=== PATIENT | male | born 1995 | race Caucasian/White ===

== ENCOUNTER 2017-07-01 11:33 | Day surgery (SDC) | payer OTHER ==
[~2017-07-01 11:33] MED LIST: Buffered Lidocaine 0.9% SYRIN* 5 ML/SYR SYRINGE INTRADERM ONE; Dexamethasone IV* 4 MG/ML 1 ML (4 MG) ONE; Famotidine TAB* 20 MG PO ONE; Lidocaine 2% PF * 5 ML VIAL ONE; Metoclopramide TAB* 10 MG PO ONE; Midazolam* 1 MG/ML 5 ML VIAL (5 MG) ONE; Ondansetron INJ* 2 MG/ML VIAL ONE; Propofol* 10 MG/ML 20 ML BTL IV PUSH ONE; fentaNYL* 50 MCG/ML 2 ML VIAL (100 MCG VIAL) ONE
[2017-07-01] MEDS ORDERED: Metoclopramide TAB* 10 MG ONE (11:42)
[2017-07-01] MEDS ORDERED: fentaNYL* 50 MCG/ML 2 ML VIAL (100 MCG VIAL) ONE (11:42)
[2017-07-01] MEDS ORDERED: Buffered Lidocaine 0.9% SYRIN* 5 ML/SYR SYRINGE ONE (11:42)
[2017-07-01] MEDS ORDERED: Famotidine TAB* 20 MG ONE (11:42)
[2017-07-01] MEDS ORDERED: Lidocaine 2% JELLY* 6 ML JELLY TOPICAL ONE (12:36)
[2017-07-01] MEDS ORDERED: Lidocaine 1% MPF wEPI 200,000* 30 ML SDV ONE (12:36)
[2017-07-01] MEDS ORDERED: Bupivacaine 0.5% PF 10 ML VIAL INJ ONE ×2 (12:36→12:37)
[2017-07-01] MEDS ORDERED: Mivacurium Chloride* 20 MG/10 ML VIAL IV ONE (13:04)
[2017-07-01] MEDS ORDERED: Propofol* 10 MG/ML 20 ML BTL IV PUSH ONE (13:28)
[2017-07-01] MEDS ORDERED: EPHEDrine (Pressors)* 50 MG/ML VIAL ONE (13:50)
[2017-07-01] MEDS ORDERED: Naloxone* 0.4 MG/ML 1 ML VIAL IV PRN (13:51)
[2017-07-01] MEDS ORDERED: Ondansetron INJ* 2 MG/ML VIAL IV PRN (13:51)
[2017-07-01] MEDS ORDERED: fentaNYL* 50 MCG/ML 2 ML VIAL (100 MCG VIAL) IV PRN (13:51)
--- NOTE | 2017-07-01 14:01 | BRIEFOPN ---
Brief Operative Note - Surgery Procedures: OPERATIVE REPORT PRE-OP: Recurrent anal abscess POST-OP: Same anal fistula PROCEDURE: Anorectal exam under anesthesia with seton suture placement (blue size vessel loop) SURGEON: MD Marie ANESTHESIA: General with local, Dr. Rivera ASST: none IVF:min EBL:min SPECIMEN:none DRAIN: none WOUND CLASS:4 COMPLICATIONS: none TO PACU
[2017-07-01] MEDS ORDERED: oxyCODONE/Acetamin 5/325 MG* TAB PO PRN (14:10)
[2017-07-01] MEDS ORDERED: oxyCODONE/Acetamin 5/325 MG* TAB ONE (14:55)
[2017-07-01 15:28] VITALS: BP 150/96
--- NOTE | 2017-07-01 17:31 | OP ---
CC: [facility]; [facility] * DATE OF OPERATION: 07/01/17 - [facility] DATE OF : 89 SURGEON: Issac Salazar MD TEAM FACILITATOR: None. ANESTHESIOLOGIST: Dr. Rivera. ANESTHESIA: General with local. PRE-OP DIAGNOSIS: Recurrent perianal abscess. POST-OP DIAGNOSES: 1. Recurrent perianal abscess. 2. Anal fistula. OPERATIVE PROCEDURE: Anorectal exam under anesthesia with seton suture placement. ESTIMATED BLOOD LOSS: Minimal. WOUND CLASSIFICATION: 4. COMPLICATIONS: None. DRAINS: Blue vessel loops at seton sutures. FINDINGS: The patient noted was a chronic perianal abscess cavity at about the 9 or 10 o'clock position. This probed radially to a similar area in the internal anal canal at the dentate line. Using an 18-gauge Angiocath and hydrogen peroxide injecting into the cavity revealed spurting hydrogen peroxide through the internal opening at the dentate line. No undrained abscess was identified. BRIEF HISTORY: Mr. Margarito Posadas is a 22-year-old gentleman, who initially developed a left perianal abscess the last fall. This responded to drainage; however, he has been having intermittent drainage and discomfort since that time without complete healing. He is now being taken to the operating room for an exam under anesthesia to rule out anal fistula. DESCRIPTION OF PROCEDURE: Written informed consent was obtained and the patient was taken to the operating room and general anesthesia was administered. He was placed in the prone jackknife position. Sequential compression devices and warming blankets were applied. Time-out verification was completed. The perineum and buttocks were prepped and draped in usual sterile fashion. A 1 % lidocaine mixed with 0.25% Marcaine was infiltrated using the standard perianal block. There was an external opening noted at about 10 o'clock position, which was at the site of the previous and chronic intermittent perianal abscess. I noted no evidence of undrained pus, redness or mass. Digital rectal exam showed normal tone and no evidence of blood or mass. The external opening was opened slightly with a cautery and a probe was used to pass into the cavity and this traversed radially to the anal canal, although I did not force the probe. Once this was opened and there was obvious evidence of a possible fistula, I used an 18-gauge Angiocath and a 10 cc syringe of hydrogen peroxide, and I injected this into the cavity. Here, there was noted to be drainage of peroxide in the anal canal at the dentate line consistent with a communication in anal fistula. I then was able to gently pass the probe through the opening and pulled two blue vessel loops through the fistulous tract after debriding the edges with the curette at the external opening. These were tied with several silk ties to act as a seton suture. The fistula appeared to be quite low, but traversed the external, internal sphincter muscles and at this time I did not proceed with a formal fistulotomy. Once again, no noted other abnormalities of the internal or external openings or abscess were noted. Lidocaine gel was then placed over the exposed area on the anal verge as well as into the anal canal. Dry sterile dressing was applied. The patient tolerated the procedure well and was taken to the recovery room in stable condition. [id number]/[facility] #: [id number] JAYSHREE
== END 2017-07-01 15:30 | disposition home or self-care (01) ==
LOC: OR 11:33
PROVIDERS: ATTEND Surgery
DX: K61.4 Intrasphincteric abscess (principal)
CPT/HCPCS: A9270-GY; J1100; J2001; J2250; J2405; J2704; J3010

== ENCOUNTER 2017-07-22 14:50 | Day surgery (SDC) | payer OTHER ==
[~2017-07-22 14:50] MED LIST changes: -Dexamethasone IV* 4 MG/ML 1 ML (4 MG) ONE; +Dexamethasone TAB* 4 MG PO ONE; +DiMENhydriNATE IV* 50 MG/ML VIAL IV PUSH PRN; +Famotidine IV* 10 MG/ML 2 ML (20 mg) IV ONE; -Famotidine TAB* 20 MG PO ONE; -Lidocaine 2% PF * 5 ML VIAL ONE; -Metoclopramide TAB* 10 MG PO ONE; -Midazolam* 1 MG/ML 5 ML VIAL (5 MG) ONE; +Morphine INJ* 2 MG/ML 1 ML CARPUJECT IV PRN; +Naloxone* 0.4 MG/ML 1 ML VIAL IV PRN; +PROCHLORPERAZINE INJ 5 MG/ML 2 ML VIAL IV PRN; -Propofol* 10 MG/ML 20 ML BTL IV PUSH ONE; +Scopolamine 1.5 mg* PATCH TRANSDERM PRN; +fentaNYL* 50 MCG/ML 2 ML VIAL (100 MCG VIAL) IV PRN; -fentaNYL* 50 MCG/ML 2 ML VIAL (100 MCG VIAL) ONE; +oxyCODONE/Acetamin 5/325 MG* TAB PO PRN
[2017-07-22] MEDS ORDERED: Famotidine IV* 10 MG/ML 2 ML (20 mg) ONE (15:07)
[2017-07-22] MEDS ORDERED: Dexamethasone TAB* 4 MG ONE (15:07)
[2017-07-22] MEDS ORDERED: Buffered Lidocaine 0.9% SYRIN* 5 ML/SYR SYRINGE ONE (15:08)
[2017-07-22] MEDS ORDERED: fentaNYL* 50 MCG/ML 2 ML VIAL (100 MCG VIAL) ONE (16:22)
[2017-07-22] MEDS ORDERED: Midazolam* 1 MG/ML 5 ML VIAL (5 MG) ONE (16:22)
[2017-07-22] MEDS ORDERED: Ketorolac INJ* 30 MG/ML 1 ML VIAL ONE (17:03)
[2017-07-22] MEDS ORDERED: Propofol* 10 MG/ML 20 ML BTL IV PUSH ONE (17:03)
[2017-07-22] MEDS ORDERED: Glycopyrrolate IV* 0.2 MG/ML 1 ML VIAL ONE ×2 (17:03→17:12)
[2017-07-22] MEDS ORDERED: PROCHLORPERAZINE INJ 5 MG/ML 2 ML VIAL ONE (17:03)
[2017-07-22] MEDS ORDERED: Lidocaine 2% PF * 5 ML VIAL ONE (17:04)
[2017-07-22] MEDS ORDERED: LIDOCAINE 5% ONE (17:08)
[2017-07-22] MEDS ORDERED: Lidocaine 2% JELLY* 20 ML (for OR use) ONE (17:10)
[2017-07-22] MEDS ORDERED: Neostigmine Methylsulfate* 1 MG/ML 10 ML VIAL (1 mg/ml) ONE (17:12)
--- NOTE | 2017-07-22 17:20 | BRIEFOPN ---
Brief Operative Note - Surgery Procedures: OPERATIVE REPORT PRE-OP: Anal fistula POST-OP: Same PROCEDURE: Anal fistulotomy SURGEON: MD Marie ANESTHESIA:Local with General; Dr. Eduardo ASST: none IVF:min EBL:min SPECIMEN:none DRAIN: none WOUND CLASS: 2 COMPLICATIONS: none TO PACU
[2017-07-22 18:24] VITALS: BP 146/90
--- NOTE | 2017-07-23 11:15 | OP ---
DATE OF OPERATION: 07/22/17 - [facility] DATE OF : [birth year] SURGEON: Issac Salazar MD. URANIUM PROCESSING SUPERVISOR: None. ANESTHESIOLOGIST: Dr. Eduardo. ANESTHESIA: General with local anesthetic. PRE-OP DIAGNOSIS: Anal fistula. POST-OP DIAGNOSIS: Anal fistula. OPERATIVE PROCEDURE: Anal fistulotomy. ESTIMATED BLOOD LOSS: Minimal. WOUND CLASSIFICATION: 2. COMPLICATIONS: None. DRAINS: None. SPECIMENS: None. DESCRIPTION OF PROCEDURE: Written informed consent was obtained and the patient was taken to the operating room. General anesthesia was administered. He was placed in the prone jackknife position. Sequential compression devices and warming blankets were applied. The buttocks and perineum were prepped and draped in the usual sterile fashion. A timeout verification was completed. Initially, the previously placed seton sutures that had been placed in the fistula at about the 10 o'clock position were evaluated. There was no evidence of abscess or purulence and the inflammatory process had resolved. There were no evidence of significant hemorrhoidal disease or fissures. Fistulotomy was then performed using the electrocautery. I did cut down over the anal verge skin extending up into the dentate line and a small amount of external muscle was divided and the seton sutures were removed as this was filleted open. The tract was granulated. It was debrided of granulation tissue and cautery was used for bleeding control. Thorough anal and rectal exam using retractor showed no other anorectal disorders. Lidocaine jelly was placed into the raw fistulotomy site. Dry sterile dressing was applied. The patient tolerated the procedure well, was taken to the recovery room in stable condition. [id number]/[facility] #: [id number] [facility]
[2017-07-25] MEDS ORDERED: Scopolamine PATCH Remove* 1 NOTE MISC PATCH OFF ONE (05:56)
== END 2017-07-22 18:50 | disposition home or self-care (01) ==
LOC: OR 14:50
PROVIDERS: ATTEND Surgery
DX: K60.3 Anal fistula (principal)
CPT/HCPCS: A9270-GY; J0780; J1885; J2250; J2704; J2710; J3010; J8540